=== PATIENT | female | born 1965 | race Caucasian/White ===

== ENCOUNTER 2019-07-09 11:40 | Outpatient (CLI) | payer OTHER, SELFPAY ==
--- NOTE | ~2019-07-09 | XR_ITS ---
XR_CERV2-3V_CR 07/09/2019 12:04 Indication: Neck pain and torticollis Procedure: 3 views of the cervical spine Comparison: No prior studies for comparison. Findings: Reversal of cervical lordosis. There is levoscoliosis. Vertebral body heights are maintaine d. No prevertebral soft tissue abnormality. There is mild-moderate multilevel facet hypertrophy. [place] toid process within normal limits. Lateral masses normally aligned. Lung apices are normal. Impression: 1: Reversal of cervical lordosis with levoscoliosis, likely due to muscle spasm. 2: Mild cervical spondylosis. Reviewed, dictated and finalized at location A. Impression: 1: Reversal of cervical lordosis with levoscoliosis, likely due to muscle spasm . 2: Mild cervical spondylosis.
== END 2019-07-09 11:41 | disposition home or self-care (01) ==
PROVIDERS: PCP Internal Medicine; Visit Provider Internal Medicine
DX: M43.6 Torticollis (principal); M41.82 Other forms of scoliosis, cervical region; M47.812 Spondylosis without myelopathy or radiculopathy, cervical region
CPT/HCPCS: 72040

== ENCOUNTER 2019-07-26 08:58 | Inpatient (IN) | payer OTHER, SELFPAY ==
[2019-07-26] VITALS (12 sets, daily range): BP systolic 94–168; BP diastolic 53–91; PULSE 84–107; RESP 14–22; TEMP 36.8–37.1; O2SAT 94–100; BMI 31.8
--- NOTE | ~2019-07-26 | CT_ITS ---
EXAMINATION: CT cervical spine wo con DATE: 07/26/2019 10:36 INDICATION: Weakness. Neck pain post fall. TECHNIQUE: Computed tomography (CT) of the cervical spine was performed without intravenous contrast. Automated exposure control and iterative reconstruction technique were employed. The dose-length pro duct was 407.69 mGy-cm. COMPARISON: 05/08/2017 FINDINGS: Increased cervical levoscoliosis which along with mild nonfocal reversal of the normal cervical lordo sis may be positional or secondary to muscle spasm. No spondylolisthesis or facet subluxation. Verteb ral body heights are normal. No fractures. Disc heights are normal. Multilevel mild to moderate bilat eral uncovertebral osteoarthritis. Severe facet osteoarthritis on the right at C4-C5. Otherwise multi level mild bilateral cervical facet osteoarthritis. Cervical soft tissues are unremarkable. Visualize d airway and apices of lungs are clear. IMPRESSION: 1. Increased cervical levoscoliosis and reversal the cervical lordosis which could be positional or s econdary to muscle spasm. No other acute osseous abnormality. Reviewed, dictated and finalized at location A. IMPRESSION: 1. Increased cervical levoscoliosis and reversal the cervical lordosis which co uld be positional or secondary to muscle spasm. No other acute osseous abnormal ity.
--- NOTE | ~2019-07-26 | XR_ITS ---
XR chest 1V DATE: 07/26/2019 10:28 INDICATION: Dyspnea TECHNIQUE: AP chest COMPARISON: 09/17/2018 PA and lateral chest FINDINGS: Normal heart size. No hilar or mediastinal enlargement. No pulmonary infiltrate or consolid ation, pleural effusion or pulmonary vascular congestion or pneumothorax. IMPRESSION: No active cardiopulmonary disease Reviewed, dictated and finalized at location A.
--- NOTE | ~2019-07-26 | CT_ITS ---
EXAMINATION: CT brain wo con DATE: 07/26/2019 10:36 INDICATION: Patient fell. Head injury. TECHNIQUE: Computed tomography (CT) of the head was performed without intravenous contrast. The mA wa s adjusted according to patient size. Iterative reconstruction technique was employed. Exam dose: 68 1.00 mGy-cm total exam DLP. COMPARISON: 05/04/2017, 12/09/2010 CT brain FINDINGS: No intracranial mass lesion or hemorrhage or cerebrovascular accident is evident. No midlin e shift or mass effect. No subdural or epidural hematoma. There is a mucous retention cyst or polyp in the posterior lower left maxillary sinus. There is mild echograms thickening of the upper right maxillary sinus. There is soft tissue thickening of the ethmo id air cells, primarily on the right. The mastoid air cells are normally developed and aerated. No fracture or bone destruction of the cranial vault. IMPRESSION: No significant intracranial abnormality Reviewed, dictated and finalized at Location A. Reviewed, dictated and finalized at location A.
--- NOTE | 2019-07-26 09:21 | ECG_ITS ---
Measurements Intervals [place] Rate: 103 P: 56 LA: 150 QRS: -11 QRSD: 117 T: 40 QT: 428 QTc: 561 Interpretive Statements SINUS TACHYCARDIA INTRAVENTRICULAR CONDUCTION DELAY BORDERLINE R WAVE PROGRESSION, ANTERIOR LEADS BORDERLINE ECG Electronically Signed On 07-26-2019 9:45:51 CDT by Bartolo Rosenbaum D.O.
--- NOTE | 2019-07-26 09:21 | PC.NURSE ---
pt does not know home meds. no list with pt. will contact family for more info
--- NOTE | 2019-07-26 09:22 | ED.GENADULT ---
HPI - General Adult General Chief complaint: Unspecified Stated complaint: Sent by pcp, r/o dka Time Seen by Provider: 07/26/19 09:00 Source: RN notes reviewed History of Present Illness HPI narrative: Patient presents emergency department from home for weakness and abnormal labs. Patient with history of diabetes a gone to PCP yesterday and had lab work done that had come back today showing a blood sugar of 651 with a concern of possible DKA. Patient states she did fall this morning and is unsure if she struck her head. Per the patient's daughter the patient has been having altered mental status and some hallucinations. Patient currently denies any symptoms except for neck pain which she states she has been having since the fall. She denies any fevers or chills chest pain shortness of breath abdominal pain nausea vomiting or any other symptoms Related Data Home Medications Medication Instructions Recorded Confirmed albuterol sulfate 90 mcg/actuation 2 puff INHALATION Q4-6H PRN gm 06/27/19 07/26/19 aerosol inhaler atorvastatin 20 mg tablet 20 mg PO DAILY 06/27/19 07/26/19 blood sugar diagnostic #10 each 06/27/19 07/09/19 blood-glucose meter #1 each 06/27/19 07/09/19 gabapentin 600 mg tablet 1,200 mg PO TID tablet 06/27/19 07/26/19 lancets #50 each 06/27/19 07/09/19 oxycodone-acetaminophen 10 mg-300 1 tablet PO TID PRN 06/27/19 07/09/19 mg tablet trazodone 100 mg tablet 50 mg PO HS PRN tablet 06/27/19 07/26/19 furosemide 40 mg tablet 40 mg PO BID tablet 07/09/19 07/26/19 spironolactone 50 mg tablet 50 mg PO BID tablet 07/09/19 07/09/19 insulin glargine 100 unit/mL 10 unit SUB-Q DAILY ml 07/25/19 subcutaneous solution ferrous sulfate 325 mg PO DAILY 07/26/19 07/26/19 insulin glargine [Basaglar KwikPen 20 unit SUBCUT DAILY 07/26/19 U-100 Insulin] insulin lispro [Humalog U-100 10 unit SUBCUT TID 07/26/19 Insulin] omeprazole 40 mg PO DAILY 07/26/19 07/26/19 ondansetron HCl PRN PRN 07/26/19 Allergies Allergy/AdvReac Type Severity Reaction Status Date / Time amoxicillin Allergy Unknown Rash Verified 07/26/19 09:20 iodine Allergy Unknown Rash Verified 07/26/19 09:20 Review of Systems Review of Systems: Narrative: Gen.: Denies fevers or chills Eyes: Denies eye pain or visual change ENT: Denies congestion Respiratory: Denies shortness of breath or cough CV: Denies chest pain or palpitations GI: Denies abdominal pain nausea, emesis or diarrhea denies burning, urgency, frequency or hematuria Musculoskeletal: Denies back pain or muscle pain Neuro: See HPI Skin: Denies rash Endocrine: Elevated blood sugar Except as documented, all other systems reviewed and negative PMFSH Past Medical History Medical History Anxiety Encephalopathy Hypokalemia Hypothyroidism Lipoma Removed of abdomen 12/2017 Liver cirrhosis Lymphoma PTSD (post-traumatic stress disorder) Thyroid cancer Tobacco abuse Type 2 diabetes mellitus Surgical History Surgical History (Updated 06/27/19 @ 08:03 by Melina Urias CMA) H/O hernia repair H/O thyroidectomy H/O: hysterectomy Social History Social History Smoking packs per day: 1 Smoking cigarettes per day: 20.0 Smoking status: Former smoker Smoking end date: 03/06/17 Alcohol intake: never Substance use: unknown Substance use type: does not use Gender identity (if verbalized by the patient): Female Spiritual care concerns: No Exam Narrative: Exam Narrative: APPEARANCE: No acute distress, nontoxic, resting in bed EYES: EOMI HEENT: Normocephalic, atraumatic, OMM RESPIRATORY: No respiratory distress Clear to auscultation bilaterally with no rhonchi wheezing or rales. CARDIOVASCULAR: Tachycardic and regular without murmurs rubs or gallops. ABDOMINAL: Soft, nontender, nondistended, no rebound or guarding MUSCULOSKELETAl: Moves all extremities.
[2019-07-26] MEDS: SODIUM CHLORIDE 0.9% IV 1,000 ML 999 ML IV CONT ×2 (09:50→11:17)
[2019-07-26 09:51] LABS: Glucose Point of Care > 500 (65-105)
[2019-07-26 10:01] LABS: Alveolar/Arterial O2 Gradient 17.6 mmHg; Base Excess ABG 16.7 mEq/l (+/-2.0); Fractional Inspired Oxygen 21 %; HCO3 ABG 42.6 mEq/l (22.0-26.0); Oxygen Content ABG 17.8 %vol (16.0-22.0); Oxygen Saturation ABG 94.1 % (95.0-100.0); Oxyhemoglobin 91.6 % THb (90.0-100.0); PCO2 ABG 55.4 mmHg (35.0-45.0); PO2 ABG 65.8 mmHg (80.0-100.0); PO2 FiO2 Ratio Arterial Blood 3.13 %; Total Hemoglobin 13.8 g/dL (12.0-18.0); pH ABG 7.504 (7.350-7.450)
[2019-07-26 10:02] LABS: Device ROOM AIR; Modified Allen's Test Pass; Site Drawn LEFT RADIAL
[2019-07-26 10:10] LABS: Basophils Absolute Auto 0.1 K/mm3 (0.0-0.1); Basophils Percent Auto 0.7 % (0.2-1.2); Eosinophils Absolute Auto 0.1 K/mm3 (0-0.3); Eosinophils Percent Auto 1.4 % (0-4.4); Hematocrit 41.3 % (37.0-47.0); Hemoglobin 13.6 g/dL (12.0-15.0); Immature Granulocyte Absolute 0.03 K/mm3 (0.00-0.031); Immature Granulocyte Percent A 0.4 % (0-0.5); Lymphocytes Absolute Auto 1.34 K/mm3 (0.9-3.2); Lymphocytes Percent Auto 18.6 % (18.3-44.2); Mean Corpuscular HGB Conc 32.9 g/dl (32-36); Mean Corpuscular Hemoglobin 24.1 pg (26-34); Mean Corpuscular Volume 73.1 fl (80-100); Mean Platelet Volume 11.6 fl (7.4-10.4); Monocytes Absolute Auto 0.6 K/mm3 (0.1-0.6); Monocytes Percent Auto 7.6 % (2.6-8.5); Neutrophils Absolute Auto 5.1 K/mm3 (1.3-6.7); Neutrophils Percent Auto 71.3 % (45.5-73.1); Platelet Count Result 170 k/mm3 (150-375); Red Blood Count 5.65 M/mm3 (4.2-5.4); Red Cell Distribution Width 15.1 % (11.5-14.5); White Blood Count 7.2 K/mm3 (4.5-10.0)
[2019-07-26 10:15] LABS: Add Urine Microscopic? YES; Appearance Urine Clear (Clear); Bacteria Urine Trace /hpf; Bilirubin Urine Negative (Negative); Blood Urine Negative (Negative); Color Urine Straw (Yellow); Glucose Urine UA 3+ mg/dL (Negative); Ketones Urine Negative (Negative); Leukocyte Esterase Ur Trace LEU/UL (Negative); Mucus Urine Rare /lpf; Nitrate Urine Negative (Negative); Protein Urine Negative (Negative); Specific Grav Ur 1.015 (1.001-1.035); Squamous Epithelial Cell Urine Few /hpf (Few); Urobilinogen Urine Negative mg/dL (<2.0)
--- NOTE | 2019-07-26 10:18 | PC.NURSE ---
family brought med bottles to ed for confirmation
[2019-07-26 10:22] LABS: Ammonia 45 umol/L (9-30)
[2019-07-26 10:25] LABS: Lactic Acid Reflex 4.3 mmol/L (0.7-2.1)
[2019-07-26 10:27] LABS: Alanine Aminotransferase 14 U/L (4-35); Albumin Level 4.6 g/dL (3.5-5.1); Alkaline Phosphatase 248 U/L (38-126); Aspartate Amino Transferase 32 U/L (14-36); Beta-Hydroxybutyrate/Acetoacetate 0.14 mmol/L (0.02-0.27); Bilirubin,Total 1.4 mg/dL (0.2-1.3); Blood Urea Nitrogen 7 mg/dL (7-17); Calcium 9.3 mg/dL (8.4-10.2); Carbon Dioxide > 40 mmol/L (22-30); Chloride 75 mmol/L (98-107); Estimated CRCL calculation 93 ml/min; Estimated Glomerular Filt Rate > 60; Glucose 566 mg/dL (65-105); Magnesium 1.9 mg/dL (1.6-2.3); Phosphorus 3.1 mg/dL (2.5-4.5); Sodium 130 mmol/L (137-145)
[2019-07-26 10:33] LABS: Troponin I < 0.012 ng/mL (0.000-0.034)
[2019-07-26] MEDS: INSULIN ASPART (*BKC) 100 UNITS/ML 10 UNITS SUB-Q (11:17)
[2019-07-26] MEDS: POTASSIUM CHLORIDE 20 MEQ TABLET 40 MEQ PO ×3 (11:18→21:31)
[2019-07-26] MEDS: LACTULOSE 20 GM/30 ML UDC PO ×2 (11:19→17:23)
[2019-07-26] MEDS: SODIUM CHLORIDE 0.9% IV 1,000 ML 125 ML IV CONT ×2 (12:37→17:26)
[2019-07-26 12:58] LABS: Glucose Point of Care 383 (65-105)
[2019-07-26 13:08] LABS: Reflex Lactic Acid Yes or No Add Lactic
--- NOTE | 2019-07-26 13:35 | ADMGEN ---
This patient, Selina Guerrero, was admitted to Intensive Care Unit-11. Patient/family oriented to hospital policies and general routines including ID bracelet, bed and alarms, visiting hours, pain management, procedures, bathroom and other care routines, personal items, smoking policy, room service/diet, and visiting hours. Valuables list has been completed. Information on how to activate the Rapid Response Team has been discussed. Patient/Family are encouraged to report perceived risks to care and to ask questions if they do not understand what they are told or what they should do.
[2019-07-26 13:36] LABS: Lactic Acid 3.6 mmol/L (0.7-2.1)
--- NOTE | 2019-07-26 13:52 | WPDCNINT ---
Assessment and Plan Assessment and plan (1) Acute hyperglycemia: Code(s): R73.9 - Hyperglycemia, unspecified Status: Acute Assessment and Plan: patient presented with acute hyperglycemia despite being on Lantus and sliding scale insulin at home - patient not in DKA, likely hyperosmolar hyper ketotic state. - Adequate IV fluids were given, will continue maintenance IV fluids - Accu-Cheks and sliding scale insulin q.4 hours - patient received Lantus 10 units in the ED - will continue Lantus q.h.s. - obtain hemoglobin A1c (2) Acute encephalopathy: Code(s): G93.40 - Encephalopathy, unspecified Status: Acute Assessment and Plan: acute encephalopathy which has been ongoing for approximately 2 weeks or more per - this could be related to elevated blood sugars, hyponatremia, opioid dependence, liver cirrhosis / elevated ammonia levels - will continue supportive care at this time and manage above issues (3) Generalized weakness: Code(s): R53.1 - Weakness Status: Acute Assessment and Plan: generalized weakness could be related to medications, underlying medical issues (4) Acute hypokalemia: Code(s): E87.6 - Hypokalemia Status: Acute Assessment and Plan: patient with acute hypokalemia, does have a history of hypokalemia - will aggressively replace potassium - patient did receive p.o. and IV potassium in the ER - will repeat potassium levels - will check magnesium and phosphorus levels (5) Torticollis, acquired: Code(s): M43.6 - Torticollis Status: Acute Assessment and Plan: per primary care doctor's office notes patient does have torticollis. (6) Tobacco abuse: Code(s): Z72.0 - Tobacco use Status: Acute Assessment and Plan: Tobacco abuse, 1 packet per day for many years, patient has been smoking 8-10 cigarettes recently per - she was started on Chantix but was discontinued in 1 week per primary care doctor has this could also be a cause of weakness, somnolence (7) Type 2 diabetes mellitus: Qualifiers: Diabetes mellitus care home insulin use: with termite exterminator use Diabetes mellitus complication status: with hyperglycemia Qualified Code(s): E11.65 - Type 2 diabetes mellitus with hyperglycemia; Z79.4 - nursing home (current) use of insulin Code(s): E11.9 - Type 2 diabetes mellitus without complications Status: Acute Assessment and Plan: patient with history of diabetes type 2, insulin dependent - patient on Lantus 20 units and sliding scale insulin at home - will continue Lantus 20 units in the hospital. (8) Liver cirrhosis: Qualifiers: Hepatic cirrhosis type: unspecified hepatic cirrhosis Ascites presence: without ascites Qualified Code(s): K74.60 - Unspecified cirrhosis of liver Code(s): K74.60 - Unspecified cirrhosis of liver Status: Acute Assessment and Plan: Patient with history of liver cirrhosis, - ammonia levels of 45 - continue lactulose (9) Lymphoma: Qualifiers: Non-Hodgkin lymphoma type: unspecified type Lymphoma site: unspecified region Lymphoma type: non-Hodgkin Qualified Code(s): C85.90 - Non-Hodgkin lymphoma, unspecified, unspecified site Code(s): C85.90 - Non-Hodgkin lymphoma, unspecified, unspecified site Status: Acute Assessment and Plan: history of non-Hodgkin's lymphoma, patient follows Dr. Sravani Munguia [facility]. (10) DVT prophylaxis: Code(s): Z29.9 - Encounter for prophylactic measures, unspecified Status: Acute Assessment and Plan: SCDs Additional Plan Discussed with Ryan, patient's condition and plan of care, he also provided much history. Code status: Full code Critical care time spent: 44 minutes Due to a high probability of clinically significant, life threatening deterioration, the patient required my hi
[2019-07-26 14:05] LABS: Glucose Point of Care 296 (65-105)
[2019-07-26] MEDS: INSULIN ASPART (*BKC) 100 UNITS/ML SUB-Q ×2 (14:07→17:24)
--- NOTE | 2019-07-26 14:43 | PM.IMHP ---
H&P: HPI History of Present Illness Chief complaint: Hypokalemia/hyperglycemia/hepatic encephalopathy Narrative: Date and Time of Service of History & Physical: July 26, 2019 at 2:30 p.m. Date and Time of Admission Order: July 26, 2019 at 11:29 a.m.. Chief Complaint: Generalized weakness and confusion. History of Present Illness: Selina Guerrero is a 54 year old female with complicated past medical history including diabetes mellitus, cirrhosis, chronic pain, history of encephalopathy, hypothyroidism, history of lymphoma, thyroid cancer and PTSD who was brought to the emergency room from home due to generalized weakness, confusion and abnormal labs. Patient is able to give me some information with other information from her electronic medical record. Patient reports she has had more problems with increased weakness in the last 2 weeks. She has had more falls in the last 2 weeks. Family noted patient's has had altered mental status with some hallucinations per ER record. Patient was also noted to have elevated blood sugar. She did see her primary physician, Dr. Hatfield, yesterday with apparently labs drawn. Family was contacted today to bring patient into the emergency room as labs were abnormal. Patient does report blood sugar is usually in the 300s at home. She has had increased thirst, blurry vision and increased urination recently. No chest pain or shortness of breath. She does have nausea but no abdominal pain. She does report headache but states this is not unusual for her. She does report bilateral arm and leg pain. In the emergency room, she was noted to be alert and oriented x2 only. Potassium was very low at 2.0 with ammonia level 45 and elevated blood glucose level. Patient's fentanyl patch was removed in the ER. She was given 3 L IV fluids as well as given IV and oral potassium replacement and started on IV ceftriaxone for possible infection. With patient's complex nature, automatic operator was consulted and did accept patient to the ICU for further evaluation and treatment. Review of Systems Review of Systems: All systems reviewed & are unremarkable except as noted in HPI and below Constitutional: Constitutional: Denies chills and Denies fever(s) Eyes: Eyes: Reports blurry vision ENT: Denies nasal congestion and Denies nasal discharge Comments: Dry mouth Cardiovascular: Cardiovascular: Denies chest pain Respiratory: Respiratory: Denies cough and Denies dyspnea Gastrointestinal: Gastrointestinal: Denies abdominal pain, Reports nausea and Denies vomiting Genitourinary: Genitourinary: Denies hematuria, Reports nocturia and Denies dysuria Musculoskeletal: Comments: Bilateral arm and leg pain Integumentary/Breasts: Skin/Breast: Reports erythema (Perineal area) Neurologic: Reports confusion and Reports headache(s) Psychiatric: Psychiatric: Reports confusion Endocrine: Endocrine: Reports no additional endocrine complaints Hematologic/Lymphatic: Hematologic/Lymphatic: Reports no additional hematologic/lymphatic complaints Allergic/Immunologic: Allergic/Immunologic: Reports no additional allergic/immunologic complaints [facility] Past Medical History Medical History Anxiety Encephalopathy Hypokalemia Hypothyroidism Lipoma Removed of abdomen 12/2017 Liver cirrhosis Lymphoma PTSD (post-traumatic stress disorder) Thyroid cancer Tobacco abuse Type 2 diabetes mellitus Surgical History Surgical History H/O hernia repair H/O thyroidectomy H/O: hysterectomy Family History Family History Mother Adopted Patient does know her mother but cannot recall health history she has written at home. Sibling Adopted Patient knows sister but does not recall health information she has written at home. Social History Social Hist
[2019-07-26 15:03] LABS: Hemoglobin A1C > 14.0 % (<5.7)
[2019-07-26 17:01] LABS: Magnesium 1.7 mg/dL (1.6-2.3); Phosphorus 2.1 mg/dL (2.5-4.5)
[2019-07-26 17:04] LABS: Blood Urea Nitrogen 6 mg/dL (7-17); Calcium 8.2 mg/dL (8.4-10.2); Carbon Dioxide 38 mmol/L (22-30); Chloride 91 mmol/L (98-107); Estimated CRCL calculation 134 ml/min; Estimated Glomerular Filt Rate > 60; Glucose 260 mg/dL (65-105); Potassium 2.6 mmol/L (3.4-5.0); Sodium 134 mmol/L (137-145)
[2019-07-26 17:08] LABS: Glucose Point of Care 267 (65-105)
[2019-07-26] MEDS: TOLNAFTATE 1% POWDER 45 GM BTL 1 APPLIC TOPICAL ×2 (17:24→21:23)
[2019-07-26] MEDS: PANTOPRAZOLE SODIUM IV 40 MG VIAL IV PUSH (19:50)
[2019-07-26 21:22] LABS: Glucose Point of Care 150 (65-105)
[2019-07-26] MEDS: INSULIN GLARGINE (*BKC) 100 UNITS/ML 20 UNITS SUB-Q (21:23)
[2019-07-26 23:43] LABS: Glucose Point of Care 146 (65-105)
[2019-07-27] VITALS: BP 93/61; PULSE 85; PULSE 87; RESP 14; TEMP 37; O2SAT 95
[2019-07-27] MEDS: SODIUM CHLORIDE 0.9% IV 1,000 ML 125 ML IV CONT (00:23)
[2019-07-27 01:59] VITALS: PULSE 87
[2019-07-27 02:00] VITALS: BP 120/75; PULSE 88; RESP 16; O2SAT 95
[2019-07-27 04:00] VITALS: BP 127/63; PULSE 85; PULSE 90; RESP 16; TEMP 36.6; O2SAT 93
[2019-07-27 04:20] LABS: Basophils Absolute Auto 0.1 K/mm3 (0.0-0.1); Basophils Percent Auto 0.9 % (0.2-1.2); Eosinophils Absolute Auto 0.1 K/mm3 (0-0.3); Eosinophils Percent Auto 2.5 % (0-4.4); Hematocrit 38.7 % (37.0-47.0); Hemoglobin 12.2 g/dL (12.0-15.0); Immature Granulocyte Absolute 0.01 K/mm3 (0.00-0.031); Immature Granulocyte Percent A 0.2 % (0-0.5); Lymphocytes Absolute Auto 1.71 K/mm3 (0.9-3.2); Lymphocytes Percent Auto 30.1 % (18.3-44.2); Mean Corpuscular HGB Conc 31.5 g/dl (32-36); Mean Corpuscular Hemoglobin 23.5 pg (26-34); Mean Corpuscular Volume 74.4 fl (80-100); Mean Platelet Volume 10.3 fl (7.4-10.4); Monocytes Absolute Auto 0.4 K/mm3 (0.1-0.6); Neutrophils Absolute Auto 3.4 K/mm3 (1.3-6.7); Neutrophils Percent Auto 59.3 % (45.5-73.1); Platelet Count Result 120 k/mm3 (150-375); Red Cell Distribution Width 15.2 % (11.5-14.5); White Blood Count 5.7 K/mm3 (4.5-10.0)
[2019-07-27 04:33] LABS: Alveolar/Arterial O2 Gradient 31.9 mmHg; Base Excess ABG 13.8 mEq/l (+/-2.0); Carboxyhemoglobin 1.1 % THb (0-2.0); Fractional Inspired Oxygen 21 %; HCO3 ABG 38.6 mEq/l (22.0-26.0); Methemoglobin ABG 0.1 %THb (0-1.5); Oxygen Content ABG 15.1 %vol (16.0-22.0); Oxygen Saturation ABG 92.5 % (95.0-100.0); Oxyhemoglobin 89.7 % THb (90.0-100.0); PCO2 ABG 49.2 mmHg (35.0-45.0); PO2 ABG 58.9 mmHg (80.0-100.0); Reduced Hemoglobin 9.1 %THb (0-5.0)
[2019-07-27 04:36] LABS: Device ROOM AIR; Modified Allen's Test Pass; Site Drawn RIGHT RADIAL; pH ABG 7.512 (7.350-7.450)
[2019-07-27 05:02] LABS: Alanine Aminotransferase 10 U/L (4-35); Albumin Level 3.3 g/dL (3.5-5.1); Alkaline Phosphatase 171 U/L (38-126); Aspartate Amino Transferase 26 U/L (14-36); Bilirubin,Total 0.8 mg/dL (0.2-1.3); Blood Urea Nitrogen 6 mg/dL (7-17); Calcium 8.2 mg/dL (8.4-10.2); Carbon Dioxide > 40 mmol/L (22-30); Chloride 96 mmol/L (98-107); Estimated CRCL calculation 110 ml/min; Estimated Glomerular Filt Rate > 60; Glucose 133 mg/dL (65-105); Lipase 57 U/L (23-300); Magnesium 1.6 mg/dL (1.6-2.3); Phosphorus 2.6 mg/dL (2.5-4.5); Potassium 2.5 mmol/L (3.4-5.0); Sodium 136 mmol/L (137-145)
[2019-07-27 05:03] LABS: Thyroid Stimulating Hormone 0.938 uIU/mL (0.465-4.680)
[2019-07-27 06:00] VITALS: BP 121/66; PULSE 96; PULSE 97; RESP 13; O2SAT 94
[2019-07-27] MEDS: LEVOTHYROXINE SODIUM 150 MCG TABLET PO (06:36)
[2019-07-27] MEDS: PANTOPRAZOLE SODIUM IV 40 MG VIAL IV PUSH (07:56)
[2019-07-27] MEDS: FERROUS SULFATE 324 MG TABLET PO (07:56)
[2019-07-27] MEDS: LACTULOSE 20 GM/30 ML UDC PO (07:56)
[2019-07-27] MEDS: TOLNAFTATE 1% POWDER 45 GM BTL 1 APPLIC TOPICAL (07:56)
[2019-07-27 08:00] VITALS: BP 146/110; PULSE 102; RESP 16; O2SAT 96
[2019-07-27 08:08] LABS: Glucose Point of Care 191 (65-105)
--- NOTE | 2019-07-27 09:17 | WPDINTPN ---
Progress Note: A&P Assessment and Plan (1) Acute hyperglycemia: Code(s): R73.9 - Hyperglycemia, unspecified Status: Acute Assessment and Plan: RESOLVED: patient presented with acute hyperglycemia despite being on Lantus and sliding scale insulin at home - patient not in DKA, likely hyperosmolar hyper ketotic state. - Adequate IV fluids were given, will continue maintenance IV fluids - Accu-Cheks and sliding scale insulin q.4 hours - patient received Lantus 10 units in the ED - will continue Lantus q.h.s. - HEMOGLOBIN A1C > 14.0 (2) Acute encephalopathy: Code(s): G93.40 - Encephalopathy, unspecified Status: Acute Assessment and Plan: RESOLVED: patient presented with acute encephalopathy which has been ongoing for approximately 2 weeks or more per - this could be related to elevated blood sugars, hyponatremia, opioid dependence, liver cirrhosis / elevated ammonia levels - will continue supportive care at this time and manage above issues - this morning patient is awake, alert, oriented x3, conversant, carries on a full conversation, follows simple commands in all extremities, nonfocal (3) Generalized weakness: Code(s): R53.1 - Weakness Status: Acute Assessment and Plan: generalized weakness could be related to medications, underlying medical issues - will require PT /OT (4) Acute hypokalemia: Code(s): E87.6 - Hypokalemia Status: Acute Assessment and Plan: patient with acute hypokalemia, does have a history of hypokalemia - will aggressively replace potassium and magnesium (5) Torticollis, acquired: Code(s): M43.6 - Torticollis Status: Acute Assessment and Plan: per primary care doctor's office notes patient does have torticollis. (6) Tobacco abuse: Code(s): Z72.0 - Tobacco use Status: Acute Assessment and Plan: Tobacco abuse, 1 packet per day for many years, patient has been smoking 8-10 cigarettes recently per - she was started on Chantix but was discontinued in 1 week per primary care doctor has this could also be a cause of weakness, somnolence - counseled patient on cessation is tobacco use (7) Type 2 diabetes mellitus: Qualifiers: Diabetes mellitus nursing home insulin use: with nursing home use Diabetes mellitus complication status: with hyperglycemia Qualified Code(s): E11.65 - Type 2 diabetes mellitus with hyperglycemia; Z79.4 - termite exterminator helper (current) use of insulin Code(s): E11.9 - Type 2 diabetes mellitus without complications Status: Acute Assessment and Plan: patient with history of diabetes type 2, insulin dependent - patient on Lantus 20 units and sliding scale insulin at home - will continue Lantus 20 units in the hospital. - hemoglobin A1c > 14.0 - patient admits to having a lot of candies - discussed with her the down sides of elevated blood sugars and elevated hemoglobin A1c, she stated she has go take better care of herself and eat less candies (8) Liver cirrhosis: Qualifiers: Hepatic cirrhosis type: unspecified hepatic cirrhosis Ascites presence: without ascites Qualified Code(s): K74.60 - Unspecified cirrhosis of liver Code(s): K74.60 - Unspecified cirrhosis of liver Status: Acute Assessment and Plan: Patient with history of liver cirrhosis, - ammonia levels of 45 - continue lactulose (9) Lymphoma: Qualifiers: Lymphoma type: non-Hodgkin Non-Hodgkin lymphoma type: unspecified type Lymphoma site: unspecified region Qualified Code(s): C85.90 - Non-Hodgkin lymphoma, unspecified, unspecified site Code(s): C85.90 - Non-Hodgkin lymphoma, unspecified, unspecified site Status: Acute Assessment and Plan: history of non-Hodgkin's lymphoma, patient follows Dr. Sravani Munguia [facility]. (10) DVT prophylaxis: Code(s): Z29.9 - Encounter for prophylacti
[2019-07-27] MEDS: POTASSIUM CHLORIDE 20 MEQ TABLET 40 MEQ PO (09:25)
--- NOTE | 2019-07-27 09:33 | PC.NURSE ---
Patient informed both myself and Dr. Cortez that she wanted to leave the hospital. Both Dr. Cortez and I educated the patient on the need for additional electrolyte replacement. Patient continued to insist she would be leaving today. Patient is alert and oriented x 3. Dr. Payan was notified of the patients wishes and stated she would have to leave AMA. I informed the patient of this and requested that she stay to finish receiving her IV potassium and for magnesium to be hung. Patient refused and states she doesn't want anything else done and will be leaving. Patient again updated on the risks of leaving with a decreased potassium level and benefits of staying, patient still opted to leave AMA. Patient called her who will be coming to pick her up
--- NOTE | 2019-07-27 10:53 | PC.NURSE ---
Patient left AMA at 0955, AMA form was reviewed and signed by patient. All IV's and beasley removed from patient. Patient's picked her up.
--- NOTE | 2019-07-27 16:58 | PM.DS ---
DS: Admitting Diagnosis Admitting Diagnosis Admitting Diagnosis: Hyperglycemia, unspecified DS: Discharge Diagnosis Discharge Diagnosis (1) Acute encephalopathy: Code(s): G93.40 - Encephalopathy, unspecified Status: Acute Assessment and Plan: Suspect multifactorial. Fentanyl patch removed in the emergency room.. Concern for UTI as noted below. Also with elevated glucose. Pt was treated with IV rocephin. Pt left AMA the next day before I saw her. (2) Type 2 diabetes mellitus: Qualifiers: Diabetes mellitus jail insulin use: with manager terminal use Diabetes mellitus complication status: with hyperglycemia Qualified Code(s): E11.65 - Type 2 diabetes mellitus with hyperglycemia; Z79.4 - retirement (current) use of insulin Code(s): E11.9 - Type 2 diabetes mellitus without complications Status: Acute Assessment and Plan: Uncontrolled blood glucose. Sugars over 500. (3) Acute hypokalemia: Code(s): E87.6 - Hypokalemia Status: Acute Assessment and Plan: Potassium very low at 2.0 on presentation. IV and oral potassium given. Last potassium 2.5, pt warned about risk of cardiac arrest by the ICU attending. with low potassium. Pt still wants to leave AMA. (4) Generalized weakness: Code(s): R53.1 - Weakness Status: Acute Assessment and Plan: Recommended PT/OT. (5) Liver cirrhosis: Qualifiers: Hepatic cirrhosis type: unspecified hepatic cirrhosis Ascites presence: without ascites Qualified Code(s): K74.60 - Unspecified cirrhosis of liver Code(s): K74.60 - Unspecified cirrhosis of liver Status: Acute Assessment and Plan: Continue to monitor ammonia levels. (6) Thyroid cancer: Code(s): C73 - Malignant neoplasm of thyroid gland Status: Acute Assessment and Plan: Chronic issue. (7) Lymphoma: Qualifiers: Lymphoma type: non-Hodgkin Non-Hodgkin lymphoma type: unspecified type Lymphoma site: unspecified region Qualified Code(s): C85.90 - Non-Hodgkin lymphoma, unspecified, unspecified site Code(s): C85.90 - Non-Hodgkin lymphoma, unspecified, unspecified site Status: Acute Assessment and Plan: Known non-Hodgkin's lymphoma. Followed by Dr. Sravani Munguia at [facility]. (8) Tobacco abuse: Code(s): Z72.0 - Tobacco use Status: Acute Assessment and Plan: Encouraged continued cessation by hospitalist. DS: Summary Time Spent with Patient Time attestation: Total time spent providing and/or coordinating discharge services:40 minutes on day of discharge Exam Narrative: Exam Narrative: Pt left AMA before I saw her DS: Data Data Completed and Pending Labs on day of discharge: Labs from last 24 hours 07/27/19 07/27/19 07/27/19 07:46 04:23 03:59 WBC RBC Hgb Hct MCV MCH MCHC RDW Plt Count MPV Immature Gran % (Auto) Neut % (Auto) Lymph % (Auto) Sabine % (Auto) Eos % (Auto) Baso % (Auto) Lymph # (Auto) Sabine # (Auto) Eos # (Auto) Baso # (Auto) Abs Immat Gran (auto) Absolute Neuts (auto) Absolute Nucleated RBC Nucleated RBC % Puncture Site Right radial ABG pH 7.512 H* ABG pCO2 49.2 H ABG pO2 58.9 L ABG PO2/FiO2 Ratio 2.80 ABG HCO3 38.6 H ABG O2 Saturation 92.5 L ABG O2 Content 15.1 L ABG Base Excess 13.8 A-a Gradient 31.9 Oxyhemoglobin 89.7 L Carboxyhemoglobin 1.1 Methemoglobin 0.1 Reduced Hemoglobin 9.1 H Total Hemoglobin 12.0 O2 Delivery Device Room air O2 Liters/Min Not Reportable FiO2 21 Sodium Potassium Chloride Carbon Dioxide BUN Creatinine Estim Creat Clear Calc Estimated GFR Glucose POC Capillary Glucose 191 H Calcium Phosphorus Magnesium Total Bilirubin AST ALT Alkaline Phosphatase Total Protein Albumin L
== END 2019-07-27 09:55 | disposition left against medical advice (07) | DRG 638 ==
LOC: ANHED 11:15 → ANHICU 14:00
PROVIDERS: Internal Medicine; Admitting Provider Hospitalist; Emergency Provider Emergency Medicine; PCP Internal Medicine; Visit Provider Family Medicine
DX: E11.65 Type 2 diabetes mellitus with hyperglycemia (principal); F11.20 Opioid dependence, uncomplicated; E87.6 Hypokalemia; K72.90 Hepatic failure, unspecified without coma; Z87.891 Personal history of nicotine dependence; M43.6 Torticollis; Z79.4 Long term (current) use of insulin; K74.60 Unspecified cirrhosis of liver; Z85.71 Personal history of Hodgkin lymphoma
CPT/HCPCS: 36415; 36600; 70450; 71045; 72125; 80048; 80053; 81001; 82010; 82140; 82375; 82805; 82948; 83036; 83050; 83605; 83690; 83735; 84100; 84439; 84443; 84484; 85025; 87040; 93005; 96361; 96365; 96366; 96367; 99285; A9270; C9113; J0696; J1815; J3480; J7030

== ENCOUNTER 2019-08-01 10:31 | Outpatient (CLI) | payer OTHER, SELFPAY ==
[2019-08-01 11:06] LABS: Ammonia 28 umol/L (9-30)
[2019-08-01 11:45] LABS: Blood Urea Nitrogen 6 mg/dL (7-17); Calcium 8.4 mg/dL (8.4-10.2); Carbon Dioxide 38 mmol/L (22-30); Chloride 82 mmol/L (98-107); Estimated Glomerular Filt Rate > 60; Glucose 415 mg/dL (65-105); Potassium 2.7 mmol/L (3.4-5.0); Sodium 129 mmol/L (137-145)
== END 2019-08-01 10:32 | disposition home or self-care (01) ==
PROVIDERS: PCP Internal Medicine; Visit Provider Nurse Practitioner
DX: K74.60 Unspecified cirrhosis of liver (principal); E87.6 Hypokalemia
CPT/HCPCS: 36415; 80048; 82140

== ENCOUNTER 2019-08-05 09:59 | Outpatient (CLI) | payer OTHER, SELFPAY ==
[2019-08-05 10:39] LABS: Blood Urea Nitrogen 3 mg/dL (7-17); Calcium 8.6 mg/dL (8.4-10.2); Carbon Dioxide 36 mmol/L (22-30); Chloride 88 mmol/L (98-107); Estimated Glomerular Filt Rate > 60; Glucose 356 mg/dL (65-105); Potassium 2.9 mmol/L (3.4-5.0); Sodium 130 mmol/L (137-145)
== END 2019-08-05 10:00 | disposition home or self-care (01) ==
PROVIDERS: PCP Internal Medicine; Visit Provider Nurse Practitioner
DX: E87.6 Hypokalemia (principal)
CPT/HCPCS: 36415; 80048

== ENCOUNTER 2019-08-07 10:32 | Outpatient (CLI) | payer OTHER, SELFPAY ==
[2019-08-07 11:11] LABS: Blood Urea Nitrogen 6 mg/dL (7-17); Calcium 8.8 mg/dL (8.4-10.2); Carbon Dioxide 38 mmol/L (22-30); Chloride 86 mmol/L (98-107); Estimated Glomerular Filt Rate > 60; Glucose 403 mg/dL (65-105); Potassium 3.5 mmol/L (3.4-5.0); Sodium 129 mmol/L (137-145)
== END 2019-08-07 10:33 | disposition home or self-care (01) ==
PROVIDERS: PCP Internal Medicine; Visit Provider Nurse Practitioner
DX: E87.6 Hypokalemia (principal)
CPT/HCPCS: 36415; 80048

== ENCOUNTER 2019-09-23 08:17 | Outpatient (CLI) | payer OTHER, SELFPAY ==
--- NOTE | 2019-09-23 | ECHO_ITS ---
Patient Info Name: Selina Guerrero Age: 54 years : 1965 Gender: Female Ht: 65 in Wt: 211 lbs BSA: 2.14 m2 HR: 117 bpm BP: 134 / 95 mmHg Heart Rhythm: Tachycardia Technical Quality: Good Exam Date: 09/23/2019 8:55 AM Exam Location: [facility] Pulmonary Patient Status: Outpatient Admit Date: 09/23/2019 Staff Ordering Physician: MagalySree MD Glass Toughening Operator: Bette Hand RDCS Attending Provider: Magaly, Sree Evans MD Referring Physician: Magaly THORNE; Exam Type: CA echo doppler color flow Study Info Indications - EDEMA Complete two-dimensional, color flow and Doppler transthoracic echocardiogram is performed. Summary 1. Left ventricular systolic function is hyperdynamic, estimated at >70%. 2. There is moderately increased left ventricular wall thickness. 3. The left ventricular diastolic function is grade I diastolic dysfunction. 4. There is trace tricuspid valve regurgitation. 5. Mild pulmonary hypertension, estimated pulmonary arterial systolic pressure is 42 mmHg. 6. Mild left ventricle intracavitary obstructuion with peak gradient 16 mmHg. 7. Pleural effusion, possible ascites. Left Ventricle Left ventricular chamber dimension is normal. Left ventricular systolic function is hyperdynamic, estimated at >70%. There is moderately increased left ventricular wall thickness. Left ventricular septal wall motion is normal. The left ventricular diastolic function is grade I diastolic dysfunction. Right Ventricle Right ventricular chamber dimension is normal. Right ventricular systolic function is normal. Left Atria Left atrial chamber dimension is normal. Right Atria Right atrial chamber dimension is normal. Aortic Valve The aortic valve is not well visualized. There is no aortic valve sclerosis. There is no aortic valve stenosis. There is no aortic valve regurgitation. Pulmonic Valve The pulmonic valve is normal. There is no pulmonic valve stenosis. There is no pulmonic regurgitation. Mitral Valve The mitral valve has normal leaflets. There is no mitral valve stenosis. There is no mitral valve regurgitation. Tricuspid Valve The tricuspid valve leaflets are normal. There is no significant tricuspid valve stenosis. There is trace tricuspid valve regurgitation. Mild pulmonary hypertension, estimated pulmonary arterial systolic pressure is 42 mmHg. Pericardium/Pleural The pericardium appears normal. There is no pericardial effusion. Inferior Vena Cava Dilated inferior vena cava with <50% collapse upon inspiration consistent with elevated right atrial pressure, 15 mmHg. Aorta The aortic root size at the sinus of Valsalva is normal. The prox ascending aorta size is normal. Left Ventricular Outflow Tract Name Value Normal LVOT 2D LVOT Diameter 2.0 cm LVOT Doppler LVOT Peak Gradient 7 mmHg LVOT Mean Gradient 4 mmHg LVOT VTI 21 cm LVOT VTI/AV VTI Ratio 0.8 LVOT Stroke Volume 64 ml
== END 2019-09-23 08:18 | disposition home or self-care (01) ==
PROVIDERS: PCP Internal Medicine; Visit Provider Internal Medicine Gastroenterology
DX: K75.81 Nonalcoholic steatohepatitis (NASH) (principal); K74.60 Unspecified cirrhosis of liver; R60.0 Localized edema
CPT/HCPCS: 93306

== ENCOUNTER 2019-09-24 09:31 | Outpatient (CLI) | payer OTHER, SELFPAY ==
--- NOTE | ~2019-09-24 | US_ITS ---
EXAMINATION: US right upper quadrant EXAM DATE: 09/24/2019 10:53 INDICATION: Cirrhosis. TECHNIQUE: Multiple grayscale and Doppler images of the abdomen right upper quadrant were obtained (b jessica a technologist who performed the scan) and subsequently reviewed. There is no prior study for raysa hernandez. FINDINGS: There is moderate amount of ascites. Nodular liver contour consistent with cirrhosis. Wadsworth creas head and body are unremarkable. There are no focal liver lesions identified. There is no christina dence of intrahepatic biliary duct dilation. Portal venous flow was seen in the hepatopedal, normal direction and has normal Doppler waveform. No right-sided hydronephrosis. Common bile duct measures 5 mm, which is normal. The gallbladder is undistended without cholelithias is. Gallbladder wall thickening which is nonspecific in the setting of cirrhosis, ascites. Technologi st performing exam reports patient did not demonstrate sonographic Espinal's sign. Please note that t his sign is less reliable in patients who have received pain medication. IMPRESSION: 1. Cirrhosis. 2. Moderate ascites. Reviewed, dictated and finalized at location A.
== END 2019-09-24 09:32 | disposition home or self-care (01) ==
PROVIDERS: PCP Internal Medicine; Visit Provider Internal Medicine Gastroenterology
DX: K76.89 Other specified diseases of liver (principal); K75.81 Nonalcoholic steatohepatitis (NASH); R18.8 Other ascites
CPT/HCPCS: 76705

== ENCOUNTER 2019-09-26 12:16 | Emergency (ER) | payer OTHER, SELFPAY ==
--- NOTE | ~2019-09-26 | US_ITS ---
EXAMINATION: US paracentesis abd w/image DATE: 09/26/2019 14:41 INDICATION: Ascites. TECHNIQUE: The procedure and its risks, benefits, and alternatives were discussed with the patient. P otential risks discussed included bleeding and infection. The skin was prepped and draped in sterile fashion. 1% lidocaine was used for local anesthesia. Under ultrasound guidance, a 5 Fr catheter with trochar was advanced into the ascites in the left lower quadrant. Fluid was aspirated. The catheter w as removed, and a dressing was applied. There were no immediate complications. FINDINGS: Ultrasound images demonstrate ascites and the catheter within the fluid. IMPRESSION: 1. Successful ultrasound-guided paracentesis yielding 5000 mL of cloudy, yellow fluid. Reviewed, dictated and finalized at location A. IMPRESSION: 1. Successful ultrasound-guided paracentesis yielding 5000 mL of cloudy, yello w fluid.
[2019-09-26 12:18] VITALS: BP 137/85; PULSE 122; RESP 20; TEMP 36.8; O2SAT 98
[2019-09-26 12:39] VITALS: BP 151/93; PULSE 118; RESP 20; O2SAT 96
[2019-09-26 13:36] VITALS: BP 116/68; PULSE 119; RESP 15; O2SAT 95
[2019-09-26 13:42] LABS: Basophils Absolute Auto 0.1 K/mm3 (0.0-0.1); Basophils Percent Auto 0.6 % (0.2-1.2); Eosinophils Absolute Auto 0.2 K/mm3 (0-0.3); Eosinophils Percent Auto 1.2 % (0-4.4); Hematocrit 39.8 % (37.0-47.0); Hemoglobin 12.5 g/dL (12.0-15.0); Immature Granulocyte Absolute 0.05 K/mm3 (0.00-0.031); Immature Granulocyte Percent A 0.4 % (0-0.5); Lymphocytes Absolute Auto 1.55 K/mm3 (0.9-3.2); Lymphocytes Percent Auto 12.4 % (18.3-44.2); Mean Corpuscular HGB Conc 31.4 g/dl (32-36); Mean Corpuscular Hemoglobin 23.4 pg (26-34); Mean Corpuscular Volume 74.5 fl (80-100); Mean Platelet Volume 9.5 fl (7.4-10.4); Monocytes Percent Auto 8.3 % (2.6-8.5); Neutrophils Absolute Auto 9.6 K/mm3 (1.3-6.7); Neutrophils Percent Auto 77.1 % (45.5-73.1); Platelet Count Result 247 k/mm3 (150-375); Red Blood Count 5.34 M/mm3 (4.2-5.4); Red Cell Distribution Width 17.2 % (11.5-14.5); White Blood Count 12.5 K/mm3 (4.5-10.0)
[2019-09-26 13:55] LABS: INR 1.4; Prothrombin Time 16.6 Seconds (11.1-14.7)
[2019-09-26 13:56] LABS: Partial Thromboplastin Time 25.9 SECONDS (22.3-36.8)
[2019-09-26 13:57] LABS: Lactic Acid Reflex 2.9 mmol/L (0.7-2.1)
--- NOTE | 2019-09-26 13:57 | PC.NURSE ---
PER IVETTE ROSENTHAL, SHE ONLY WANTS A URINE SAMPLE IF THE PT NEEDS TO GO, PT STATES THAT IT SHOULD NOT BE LONG.
[2019-09-26 13:58] LABS: Alanine Aminotransferase 9 U/L (4-35); Albumin Level 3.5 g/dL (3.5-5.1); Alkaline Phosphatase 228 U/L (38-126); Anion Gap 15.5 mmol/L (7-16); Aspartate Amino Transferase 24 U/L (14-36); Bilirubin,Total 1.1 mg/dL (0.2-1.3); Blood Urea Nitrogen 17 mg/dL (7-17); CRP 8.5 mg/dL (<1.0); Calcium 8.8 mg/dL (8.4-10.2); Carbon Dioxide 33 mmol/L (22-30); Chloride 83 mmol/L (98-107); Estimated CRCL calculation 80 ml/min; Estimated Glomerular Filt Rate > 60; Glucose 228 mg/dL (65-105); Lipase 33 U/L (23-300); Potassium 3.5 mmol/L (3.4-5.0); Sodium 128 mmol/L (137-145)
--- NOTE | 2019-09-26 14:14 | ED.GENADULT ---
HPI - General Adult General Chief complaint: Unspecified Stated complaint: I was sent for a paracentesis Time Seen by Provider: 09/26/19 13:24 History of Present Illness HPI narrative: Patient presents via EMS with her for increasing ascites and discomfort. She has spironolactone and Lasix for diuretic. She still has massive ascites and significant leg edema. Her liver doctors are at [facility], and they told her she could be seen on Monday, but her primary center in to get the ultrasound paracentesis. She has no confusion, but has previously had encephalopathy. She has not been sick recently. Onset (ago): week(s) Location: abdomen Severity: moderate Related Data Home Medications Medication Instructions Recorded Confirmed albuterol sulfate 90 mcg/actuation 2 puff INHALATION Q4-6H PRN gm 06/27/19 08/13/19 aerosol inhaler atorvastatin 20 mg tablet 20 mg PO DAILY 06/27/19 08/13/19 blood sugar diagnostic #10 each 06/27/19 08/13/19 gabapentin 600 mg tablet 1,200 mg PO TID tablet 06/27/19 08/13/19 lancets #50 each 06/27/19 08/13/19 trazodone 100 mg tablet 50 mg PO HS PRN tablet 06/27/19 08/13/19 spironolactone 50 mg tablet 50 mg PO BID tablet 07/09/19 08/13/19 ferrous sulfate 325 mg PO DAILY 07/26/19 08/13/19 insulin lispro [Humalog U-100 10 unit SUBCUT TID 07/26/19 08/13/19 Insulin] insulin glargine 100 unit/mL (3 30 unit SUBCUT DAILY ml 08/14/19 mL) subcutaneous pen Allergies Allergy/AdvReac Type Severity Reaction Status Date / Time amoxicillin Allergy Unknown Rash Verified 09/26/19 12:37 iodine Allergy Unknown Rash Verified 09/26/19 12:37 Review of Systems Review of Systems: Narrative: CONSTITUTIONAL: Denies fever, chills, or sweats. EYES: Denies visual changes, redness, or discharge. ENT: Denies rhinorrhea, congestion, sore throat, or otalgia. CARDIOVASCULAR: Denies chest pain, palpitations, or edema. RESPIRATORY: Denies cough or dyspnea. GASTROINTESTINAL: She has abdominal pain, but not nausea, vomiting, or diarrhea. GENITOURINARY: Denies dysuria or hematuria. SKIN: Denies rash or itching. MUSCULOSKELETAL: Denies back pain, joint pain, or myalgia. NEUROLOGIC: Denies headache, numbness, or weakness. All systems reviewed & are unremarkable except as noted in HPI and below PMFSH Past Medical History Medical History Anxiety Encephalopathy Hypokalemia Hypothyroidism Lipoma Removed of abdomen 12/2017 Liver cirrhosis Lymphoma PTSD (post-traumatic stress disorder) Thyroid cancer Tobacco abuse Type 2 diabetes mellitus Surgical History Surgical History H/O hernia repair H/O thyroidectomy H/O: hysterectomy Social History Social History Social History: Patient is and does live with her . She is in the process of quitting smoking and reports she smokes 5 cigarettes per day but did previously smoke 1 pack per day. She denies alcohol use. She is a full code. She reports her and her daughter are her POA. She also has a son. Smoking packs per day: 1 Smoking cigarettes per day: 20.0 Smoking status: Former smoker Smoking end date: 03/06/17 Alcohol intake: never Substance use: unknown Substance use type: does not use Gender identity (if verbalized by the patient): Female Spiritual care concerns: No Exam Narrative: Exam Narrative: GENERAL: Well-appearing, well-nourished, and in no acute distress. Huge abdomen with ascites. Tense swelling of the leg HEAD: Normocephalic, atraumatic. EYES: PERRLA and EOMI. ENT: Nares clear, no rhinorrhea or epistaxis. Mucous membranes moist. NECK: Supple. CHEST: Clear to auscultation. No respiratory distress. HEART: Regular rate and rhythm. No murmur heard. Normal peripheral pulses. ABDOMEN: Soft, nontender, nondistended, normal active bowel soun
--- NOTE | 2019-09-26 14:36 | PC.NURSE ---
pt still in ultrasound at this time.
[2019-09-26 15:15] VITALS: BP 136/90; PULSE 108; RESP 20; O2SAT 98
[2019-09-26 16:40] LABS: Reflex Lactic Acid Yes or No Add Lactic
== END 2019-09-26 15:59 | disposition home or self-care (01) ==
PROVIDERS: Emergency Medicine Emergency Medical Services; Emergency Provider Emergency Medicine; PCP Internal Medicine
DX: R18.8 Other ascites (principal); E87.1 Hypo-osmolality and hyponatremia
CPT/HCPCS: 36415; 49083; 80053; 83605; 83690; 85025; 85610; 85730; 86140; 99284

== ENCOUNTER 2019-09-30 16:05 | Emergency (ER) | payer OTHER, SELFPAY ==
[2019-09-30 17:02] VITALS: BP 110/71; PULSE 108; RESP 16; TEMP 36.4; O2SAT 98
--- NOTE | 2019-09-30 17:38 | ED.ABDPAIN ---
HPI - Abdominal Pain General Chief Complaint: Abdominal Pain Stated Complaint: needs paracentesis Time Seen by Provider: 09/30/19 17:29 History of Present Illness HPI narrative: Patient presents with her for elective paracentesis. They tried to call the liver doctor and said that she was short of breath. They told her to go directly to the ED. The oxygen saturation is normal. I called the radiologist and he said that she can come back in the morning for a scheduled procedure. I called Dr. Hatfield and he appreciates me ordering the procedure. He will call the liver doctors at [facility] tomorrow and see what the plan is , so that she can get paracentesis when she needs it. MD elicited complaint: abdominal pain Pertinent past history: other (Liver failure with massive ascites) Onset (ago): day(s) Pain Consistency: constant Severity: severe Related Data Home Medications Medication Instructions Recorded Confirmed albuterol sulfate 90 mcg/actuation 2 puff INHALATION Q4-6H PRN gm 06/27/19 08/13/19 aerosol inhaler atorvastatin 20 mg tablet 20 mg PO DAILY 06/27/19 08/13/19 blood sugar diagnostic #10 each 06/27/19 08/13/19 gabapentin 600 mg tablet 1,200 mg PO TID tablet 06/27/19 08/13/19 lancets #50 each 06/27/19 08/13/19 trazodone 100 mg tablet 50 mg PO HS PRN tablet 06/27/19 08/13/19 spironolactone 50 mg tablet 50 mg PO BID tablet 07/09/19 08/13/19 ferrous sulfate 325 mg PO DAILY 07/26/19 08/13/19 insulin lispro [Humalog U-100 10 unit SUBCUT TID 07/26/19 08/13/19 Insulin] insulin glargine 100 unit/mL (3 30 unit SUBCUT DAILY ml 08/14/19 mL) subcutaneous pen Allergies Allergy/AdvReac Type Severity Reaction Status Date / Time amoxicillin Allergy Unknown Rash Verified 09/26/19 12:37 iodine Allergy Unknown Rash Verified 09/26/19 12:37 Review of Systems Review of Systems: Narrative: CONSTITUTIONAL: Denies fever, chills, or sweats. EYES: Denies visual changes, redness, or discharge. ENT: Denies rhinorrhea, congestion, sore throat, or otalgia. CARDIOVASCULAR: Denies chest pain, palpitations, or edema. RESPIRATORY: Denies cough or dyspnea. GASTROINTESTINAL: She has abdominal pain, and diarrhea, but not nausea, vomiting GENITOURINARY: Denies dysuria or hematuria. SKIN: Denies rash or itching. MUSCULOSKELETAL: Denies back pain, joint pain, or myalgia. NEUROLOGIC: Denies headache, numbness, or weakness. . All systems reviewed & are unremarkable except as noted in HPI and below [facility] Social History Social History Social History: Patient is and does live with her . She is in the process of quitting smoking and reports she smokes 5 cigarettes per day but did previously smoke 1 pack per day. She denies alcohol use. She is a full code. She reports her and her daughter are her POA. She also has a son. Smoking packs per day: 1 Smoking cigarettes per day: 20.0 Smoking status: Former smoker Smoking end date: 03/06/17 Alcohol intake: never Substance use: unknown Substance use type: does not use Gender identity (if verbalized by the patient): Female Spiritual care concerns: No Exam Narrative: Exam Narrative: GENERAL: Patient has huge ascites, her head tilted and laying on her chest, HEAD: Normocephalic, atraumatic. EYES: PERRLA and EOMI. ENT: Nares clear, no rhinorrhea or epistaxis. Mucous membranes moist. NECK: Supple. CHEST: Clear to auscultation. No respiratory distress. HEART: Regular rate and rhythm. No murmur heard. Normal peripheral pulses. ABDOMEN: Soft, nontender, acute ascites, not tense. EXTREMITIES: Normal range of motion. No edema. SKIN: Warm, dry, no rash. NEURO: No focal deficits. Alert and oriented x3. PSYCH: Flat affect. Course Consultations Consultation #1: Call Dr. Hatfield, and he would appreciate it if I can order the paracentesis for tomorrow. Date: 09/30/19 Time: 17:52 Consultation #2: Talk to th
[2019-09-30 18:42] VITALS: BP 115/75; PULSE 102; RESP 18; O2SAT 98
== END 2019-09-30 18:42 | disposition home or self-care (01) ==
PROVIDERS: Emergency Provider Emergency Medicine; PCP Internal Medicine
DX: K74.60 Unspecified cirrhosis of liver (principal); R18.8 Other ascites
CPT/HCPCS: 99281

== ENCOUNTER 2019-10-01 10:47 | Outpatient (CLI) | payer OTHER, SELFPAY ==
--- NOTE | ~2019-10-01 | US_ITS ---
EXAMINATION: US paracentesis abd w/image DATE: 10/01/2019 11:40 INDICATION: Ascites. TECHNIQUE: The procedure and its risks, benefits, and alternatives were discussed with the patient. P otential risks discussed included bleeding and infection. The skin was prepped and draped in sterile fashion. 1% lidocaine was used for local anesthesia. Under ultrasound guidance, a 5 Fr catheter with trochar was advanced into the ascites in the right upper quadrant. Fluid was aspirated. The catheter was removed, and a dressing was applied. There were no immediate complications. FINDINGS: Ultrasound images demonstrate ascites and the catheter within the fluid. IMPRESSION: 1. Successful ultrasound-guided paracentesis yielding 5000 mL of clear, yellow fluid. Reviewed, dictated and finalized at location A.
== END 2019-10-01 10:48 | disposition home or self-care (01) ==
PROVIDERS: PCP Internal Medicine; Visit Provider Internal Medicine
DX: K74.60 Unspecified cirrhosis of liver (principal); R18.8 Other ascites
CPT/HCPCS: 49083; C1729

== ENCOUNTER 2019-10-03 10:19 | Emergency (ER) | payer OTHER, SELFPAY ==
[2019-10-03] VITALS (24 sets, daily range): BP systolic 90–145; BP diastolic 61–97; PULSE 98–122; RESP 12–30; TEMP 36.2; O2SAT 95–99
--- NOTE | ~2019-10-03 | XR_ITS ---
EXAMINATION: XR chest 2V DATE: 10/03/2019 11:06 INDICATION: Weakness. Lethargy. TECHNIQUE: Frontal and lateral views of the chest were obtained. COMPARISON: Chest single view 07/26/2019, CT abdomen and pelvis 09/17/2018 FINDINGS: Lung volumes are small. There are interstitial opacities in the lower lung zones. No pleura l effusion or pneumothorax. The heart size is normal. IMPRESSION: 1. Small lung volumes with interstitial opacities in the lower lung zones, consistent with mild atele ctasis versus mild pulmonary edema. Reviewed, dictated and finalized at location A. IMPRESSION: 1. Small lung volumes with interstitial opacities in the lower lung zones, cons istent with mild atelectasis versus mild pulmonary edema.
--- NOTE | ~2019-10-03 | CT_ITS ---
EXAMINATION: CT abdomen pelvis wo con DATE: 10/03/2019 13:11 INDICATION: Abdominal pain, cirrhosis, history of lymphoma TECHNIQUE: Computed tomography (CT) of the abdomen and pelvis was performed without intravenous contr ast. The dose-length product (DLP) was 1420.11 mGy-cm. Automated exposure control and iterative recon struction technique were employed. COMPARISON: 09/17/2018 FINDINGS: Minimal dependent atelectasis is present in the lung bases. The heart size is normal. There is a small right pleural effusion. The liver surface is nodular, consistent with history of cirrhosi s. There is moderate volume of abdominal and pelvic ascites. The spleen, pancreas, and adrenal glands are normal. Mild apparent gallbladder wall thickening is likely due to liver disease. The kidneys ar e unremarkable. There is persistent upper abdominal, retroperitoneal, and mesenteric lymphadenopathy without definite interval change. There is no free intraperitoneal gas or evidence of bowel obstructi on. A moderate volume of colonic stool is present. There is severe spondylosis at L5-S1. IMPRESSION: 1. Cirrhosis with moderate volume of abdominal and pelvic ascites. 2. Lymphadenopathy without significant change, consistent with history of lymphoma. 3. Small right pleural effusion. Reviewed, dictated and finalized at location B. IMPRESSION: 1. Cirrhosis with moderate volume of abdominal and pelvic ascites. 2. Lymphadenopathy without significant change, consistent with history of lymph stephon. 3. Small right pleural effusion.
--- NOTE | ~2019-10-03 | US_ITS ---
EXAMINATION: US paracentesis abd w/image DATE: 10/03/2019 14:57 INDICATION: Ascites. TECHNIQUE: Consent was provided by the patient's . The skin was prepped and draped in sterile fashion. 1% lidocaine was used for local anesthesia. Under ultrasound guidance, a 5 Fr catheter with trochar was advanced into the ascites in the left lower quadrant. Fluid was aspirated. The catheter w as removed, and a dressing was applied. There were no immediate complications. FINDINGS: Ultrasound images demonstrate ascites and the catheter within the fluid. IMPRESSION: 1. Successful ultrasound-guided paracentesis yielding 1000 mL of yellow fluid. Reviewed, dictated and finalized at location A.
--- NOTE | 2019-10-03 10:33 | ED.AMS ---
HPI - Altered Mental Status General Chief Complaint: Altered Mental Status <Symone Carney PA-C - Last Filed: 10/03/19 22:19> Stated Complaint: lethargy <Symone Carney PA-C - Last Filed: 10/03/19 22:19> Time Seen by Provider: 10/03/19 10:27 <Symone Carney PA-C - Last Filed: 10/03/19 22:19> Source: patient and family <Symone Carney PA-C - Last Filed: 10/03/19 22:19> Mode of arrival: EMS <Symone Carney PA-C - Last Filed: 10/03/19 22:19> Limitations: altered mental status <Symone Carney PA-C - Last Filed: 10/03/19 22:19> History of Present Illness HPI narrative: This is a 54-year-old female that presents to the emergency department for confusion x2 days. Per patient has been getting more confused over the last couple of days. Has a history of cirrhosis and recently had a paracentesis here. Patient has been more weak and has not been able to walk around. Patient is also been reporting some abdominal discomfort. Denies fever, chest pain, shortness of breath, vomiting, dysuria, hematuria. <Symone Carney PA-C - Last Filed: 10/03/19 22:19> Related Data Home Medications: Home Medications Medication Instructions Recorded Confirmed albuterol sulfate 90 mcg/actuation 2 puff INHALATION Q4-6H PRN gm 06/27/19 08/13/19 aerosol inhaler atorvastatin 20 mg tablet 20 mg PO DAILY 06/27/19 08/13/19 blood sugar diagnostic #10 each 06/27/19 08/13/19 gabapentin 600 mg tablet 1,200 mg PO TID tablet 06/27/19 08/13/19 lancets #50 each 06/27/19 08/13/19 trazodone 100 mg tablet 50 mg PO HS PRN tablet 06/27/19 08/13/19 spironolactone 50 mg tablet 50 mg PO BID tablet 07/09/19 08/13/19 ferrous sulfate 325 mg PO BID 07/26/19 08/13/19 insulin lispro [Humalog U-100 10 unit SUBCUT TID 07/26/19 08/13/19 Insulin] insulin glargine 100 unit/mL (3 40 unit SUBCUT DAILY ml 08/14/19 mL) subcutaneous pen fentanyl TOPICAL Q72H 10/04/19 <Symone Carney PA-C - Last Filed: 10/03/19 22:19> Allergies/Adverse Reactions: Allergies Allergy/AdvReac Type Severity Reaction Status Date / Time amoxicillin Allergy Unknown Rash Verified 10/03/19 18:45 iodine Allergy Unknown Rash Verified 10/03/19 18:45 <Symone Carney PA-C - Last Filed: 10/03/19 22:19> Review of Systems Review of Systems: Narrative: Limited due to clinical condition: CONSTITUTIONAL: Denies fever CARDIOVASCULAR: Denies chest pain RESPIRATORY: Denies dyspnea. GASTROINTESTINAL: Reports abdominal pain. Denies nausea, vomiting, or diarrhea. GENITOURINARY: Denies dysuria or hematuria. <Symone Carney PA-C - Last Filed: 10/03/19 22:19> All systems reviewed & are unremarkable except as noted in HPI and below <Symone Carney PA-C - Last Filed: 10/03/19 22:19> [facility] Social History Social History: Social History Social History: Patient is and does live with her . She is in the process of quitting smoking and reports she smokes 5 cigarettes per day but did previously smoke 1 pack per day. She denies alcohol use. She is a full code. She reports her and her daughter are her POA. She also has a son. Smoking packs per day: 1 Smoking cigarettes per day: 20.0 Smoking status: Former smoker Smoking end date: 03/06/17 Alcohol intake: never Substance use: unknown Substance use type: does not use Gender identity (if verbalized by the patient): Female Spiritual care concerns: No <Symone Carney PA-C - Last Filed: 10/03/19 22:19> Exam Narrative: Exam Narrative: GENERAL: Well-appearing, well-nourished, and in no acute distress. HEAD: Normocephalic, atraumatic. EYES: PERRLA and EOMI. ENT: Mucous membranes moist. Oropharynx without tonsillar hypertrophy exudate or other lesions. NECK: Supple. No adenopathy or masses. CHEST: Clear to auscultation. No respiratory distress. No wheezes rales or rhonchi HEART: Re
--- NOTE | 2019-10-03 10:43 | ECG_ITS ---
Measurements Intervals [place] Rate: 105 P: 70 OK: 151 QRS: 31 QRSD: 94 T: 47 QT: 339 QTc: 448 Interpretive Statements SINUS TACHYCARDIA ANTERIOR INFARCT, AGE INDETERMINATE ABNORMAL ECG Electronically Signed On 10-03-2019 11:41:49 CDT by Bartolo Rosenbaum D.O.
[2019-10-03 11:38] LABS: Basophils Absolute Auto 0.1 K/mm3 (0.0-0.1); Basophils Percent Auto 0.4 % (0.2-1.2); Eosinophils Absolute Auto 0.1 K/mm3 (0-0.3); Eosinophils Percent Auto 0.6 % (0-4.4); Hematocrit 40.2 % (37.0-47.0); Immature Granulocyte Absolute 0.06 K/mm3 (0.00-0.031); Immature Granulocyte Percent A 0.5 % (0-0.5); Lymphocytes Percent Auto 8.9 % (18.3-44.2); Mean Corpuscular HGB Conc 32.3 g/dl (32-36); Mean Corpuscular Volume 74.2 fl (80-100); Mean Platelet Volume 8.9 fl (7.4-10.4); Monocytes Percent Auto 7.8 % (2.6-8.5); Neutrophils Absolute Auto 10.1 K/mm3 (1.3-6.7); Neutrophils Percent Auto 81.8 % (45.5-73.1); Platelet Count Result 244 k/mm3 (150-375); Red Blood Count 5.42 M/mm3 (4.2-5.4); Red Cell Distribution Width 18.2 % (11.5-14.5); White Blood Count 12.3 K/mm3 (4.5-10.0)
[2019-10-03 11:46] LABS: Ammonia 34 umol/L (9-30)
[2019-10-03 11:49] LABS: Alanine Aminotransferase 14 U/L (4-35); Albumin Level 3.4 g/dL (3.5-5.1); Alkaline Phosphatase 247 U/L (38-126); Aspartate Amino Transferase 40 U/L (14-36); Bilirubin,Total 1.5 mg/dL (0.2-1.3); Blood Urea Nitrogen 39 mg/dL (7-17); Calcium 8.9 mg/dL (8.4-10.2); Carbon Dioxide 27 mmol/L (22-30); Chloride 86 mmol/L (98-107); Estimated CRCL calculation 45 ml/min; Estimated Glomerular Filt Rate 39; Glucose 141 mg/dL (65-105); Lipase 65 U/L (23-300); Sodium 126 mmol/L (137-145)
[2019-10-03 11:50] LABS: INR 1.3; Lactic Acid Reflex 2.5 mmol/L (0.7-2.1); Prothrombin Time 16.2 Seconds (11.1-14.7)
[2019-10-03 11:51] LABS: Partial Thromboplastin Time 21.7 SECONDS (22.3-36.8)
[2019-10-03 11:58] LABS: NT Pro B Type Natriuretic Pept 374 PG/ML (5-100)
[2019-10-03 12:31] LABS: Add Urine Microscopic? YES; Appearance Urine Clear (Clear); Bilirubin Urine Negative (Negative); Blood Urine Negative (Negative); Color Urine Yellow (Yellow); Glucose Urine UA Negative (Negative); Ketones Urine Negative (Negative); Leukocyte Esterase Ur Negative LEU/UL (Negative); Mucus Urine Rare /lpf; Nitrate Urine Negative (Negative); Protein Urine 1+ mg/dL (Negative); RBC Urine 0-2 /hpf (0-2); Squamous Epithelial Cell Urine Rare /hpf (Few); WBC Urine 0-3 /hpf
[2019-10-03 13:02] LABS: Hemoglobin A1C 11.6 % (<5.7)
--- NOTE | 2019-10-03 14:11 | PC.NURSE ---
pt went to ultrasound, could not draw blood at this time.
[2019-10-03 14:37] LABS: Reflex Lactic Acid Yes or No Add Lactic
[2019-10-03 15:15] LABS: Lactic Acid 2.4 mmol/L (0.7-2.1)
[2019-10-03 16:46] LABS: Appearance Peritoneal Fluid Cloudy (Clear); Color Peritoneal Fluid Yellow (Colorless); Nucleated Cells Peritoneal Flu 443 /uL (0-500); Source Peritoneal Fluid Peritoneal Fluid
[2019-10-03 16:47] LABS: Eosinophils Peritoneal Fluid 0 %; Lymphocytes Peritoneal Fluid 79 %; Macrophages Peritoneal Fluid 13 %; Monocytes Peritoneal Fluid 2 %; Neutrophils Peritoneal Fluid 6 % (0-25); RBC Peritoneal Fluid 288 /uL (0-100000)
[2019-10-03] MEDS: LACTULOSE 20 GM/30 ML UDC 10 GM PO (18:53)
--- NOTE | 2019-10-03 19:34 | PC.NURSE ---
Fentanyl patches (2) removed from patient per Symone Carney's verbal order. Patient taken off bedpan-patient has pressure wound to coccyx--dressing applied
[2019-10-03] MEDS: SODIUM CHLORIDE 0.9% IV 1,000 ML 80 ML IV CONT (19:36)
--- NOTE | 2019-10-03 19:54 | PC.NURSE ---
Called [facility] for bed status. Still on list, no beds available at this time. Will let us know.
--- NOTE | 2019-10-03 20:08 | PC.NURSE ---
Patient to be transferred to [facility]--no beds available
[2019-10-04] VITALS: BP 86/61; PULSE 102; RESP 13
[2019-10-04 00:02] VITALS: BP 101/77; PULSE 100; RESP 10; O2SAT 97
--- NOTE | 2019-10-04 00:15 | PC.NURSE ---
Sharon with [facility] called with bed assignment at [facility] .... room 705, bed 2. # to call report [phone]
[2019-10-04 00:30] VITALS: BP 116/90; PULSE 113; RESP 15
--- NOTE | 2019-10-04 00:30 | PC.NURSE ---
Addendum entered by Leeanna Ward RN 10/04/19 01:19: Patient incontinent of stool-cleaned scott area. Decub to coccyx-soiled mepilex removed. Original Note: Petr
[2019-10-04 01:01] VITALS: BP 128/106; PULSE 117; RESP 14
--- NOTE | 2019-10-04 01:11 | PC.NURSE ---
Addendum entered by Leeanna Ward RN 10/04/19 02:55: Receiving nurse reports that patient cannot come at this time due to curtains have to be washed and rehung they will call back when room is ready Original Note: Report called to Ana BUCK at [facility] for patient to be transferred to room 705-2.
[2019-10-04 02:15] VITALS: PULSE 113; RESP 17
--- NOTE | 2019-10-04 02:20 | PC.NURSE ---
Call placed to [facility] regarding room being ready yet- Receiving RN still being told by housekeeping that still no curtain available. video engineer Sharla made aware of continued delay to transport patient
--- NOTE | 2019-10-04 02:38 | PC.NURSE ---
Spoke with Dr Demarco regarding patients chronic pain--Fentanyl patch was removed 10/03/19. Dr Demarco states she will go eval patient
--- NOTE | 2019-10-04 03:00 | PC.NURSE ---
[id number]--Phlebotomist at [facility] (Leeanna) called by rice milling supervisor (Sharla)---told that patient can now be transferred. Call placed to Transfer center to arrange transport ---approx ETA time is [id number]
[2019-10-04 03:06] VITALS: BP 112/78; PULSE 115; RESP 16; TEMP 37.1; O2SAT 95
[2019-10-06 23:14] LABS: Amylase Peritoneal Fluid 14 U/L
[2019-10-07 06:30] LABS: Glucose Peritoneal Fluid 141 mg/dL; LDH Peritoneal Fluid 161 U/L (<63); Total Protein Peritoneal Fluid <3.0 g/dL
== END 2019-10-04 03:44 | disposition short-term general hospital (02) ==
PROVIDERS: Physician Assistant; Emergency Provider Emergency Medicine; PCP Internal Medicine
DX: N17.9 Acute kidney failure, unspecified (principal); K72.90 Hepatic failure, unspecified without coma; K74.60 Unspecified cirrhosis of liver; R18.8 Other ascites; Z87.891 Personal history of nicotine dependence; R00.0 Tachycardia, unspecified; R94.31 Abnormal electrocardiogram [ECG] [EKG]
CPT/HCPCS: 36415; 49083; 51701; 71046; 74176; 80053; 81001; 81025; 82042; 82140; 82150; 82945; 83036; 83605; 83615; 83690; 83880; 84157; 85025; 85610; 85730; 87040; 87070; 87075; 87205; 88104; 88108; 88184; 88185; 88305; 89051; 93005; 96360; 96361; 99284; A9270; J7030